=== PATIENT | male | born 1985 | race Caucasian/White ===

== ENCOUNTER 2017-11-14 17:47 | Outpatient (CLI) | payer OTHER ==
--- NOTE | 2017-11-14 20:22 | RAD ---
LUMBAR SPINE THREE VIEWS: 11/14/2017 COMPARISON: No prior films available for comparison. FINDINGS: There is bony fragmentation of the anterior-superior corner of L3. It does not appear acute and is o bviously old. The superior endplate of L2 is irregular. There is some very slight wedging of the L1 vertebral body. I would wonder if there had either been old trauma near the thoracolumbar junction. The possibility of prior Scheuermann's disease might also be raised. There is disk space narrowing at L1-L2. The patient could probably benefit from an MRI if he is having sciatic pain. The SI join ts are symmetrical. The sacrum and coccyx are unremarkable in appearance. IMPRESSION: 1. Fragmentation of the anterior-superior corner of L3. 2. Some irregularities of the superior endplates around the L1-L2 area, along with slight wedging of L1. NOTE: All the above findings appear older rather than acute. See discussion above. Consider MRI if sympto matic treatment does not improve the situation. POS: HOME
--- NOTE | 2017-11-14 20:23 | RAD ---
CERVICAL SPINE: 11/14/2017 TECHNIQUE: AP, lateral, and open mouth views are provided. FINDINGS: No fracture, dislocation, or disk space narrowing is seen. The C1 to dens distance is normal, and th e soft tissues are normal in thickness. There are no bony anomalies or arthritic changes. IMPRESSION: No significant finding. POS: HOME
== END 2017-11-14 17:48 | disposition home or self-care (01) ==
LOC: BURRAD 17:47
PROVIDERS: ATTEND Family Medicine
DX: M54.41 Lumbago with sciatica, right side (principal); M54.2 Cervicalgia; G89.29 Other chronic pain
CPT/HCPCS: 72040; 72100